=== PATIENT | female | born 1990 | race African-American/Black ===

== ENCOUNTER 2020-11-04 04:08 | Emergency (ER) | payer MEDICAID, OTHER ==
[~2020-11-04] VITALS: Ht 149.9 cm; Wt 59.0 kg
[~2020-11-04 04:08] MED LIST: FERR-63 PO; IBUP-779 PO; MULT-1101 PO; PREN1TAB49 PO
[2020-11-04 04:13] VITALS: BP 119/89
[2020-11-04] MEDS ORDERED: LIDOCAINE HCL/PF 1% 10 MG/ML 5ML VIAL INFIL ONE (05:00)
[2020-11-04] MEDS ORDERED: BACITRACIN ZINC OINT UDPKT TOP ONE (05:00)
[2020-11-04] MEDS ORDERED: ACETAMINOPHEN 325MG TABLET PO ONE (05:00)
[2020-11-04] MEDS ORDERED: TRAMADOL 50MG TABLET PO ONE (05:00)
[2020-11-04] MEDS ORDERED: TETANUS, DIPHTHERIA, PERTUSSIS VAC/PF 0.5ML (>10YR OLD) IM ONE (05:00)
== END 2020-11-04 06:30 | disposition left against medical advice (07) ==
LOC: ER 04:08
DX: S61.412A Laceration without foreign body of left hand, initial encounter (principal); S10.83XA Contusion of other specified part of neck, initial encounter; X99.1XXA Assault by knife, initial encounter; Y93.89 Activity, other specified; Y92.480 Sidewalk as the place of occurrence of the external cause
CPT/HCPCS: 90715; 99283; J3490

== ENCOUNTER 2022-03-11 10:54 | Inpatient (IN) | payer OTHER ==
[~2022-03-11] VITALS: Ht 152.4 cm; Wt 68.0 kg
[2022-03-11] MEDS ORDERED: CARBOPROST TROMETHAMINE 250 MCG/ML AMPUL IM PRN (11:45)
[2022-03-11] MEDS ORDERED: PENICILLIN G POTASSIUM 5 MMU in DEXT 5% WATER 100 ML IV SCH (11:45)
[2022-03-11] MEDS ORDERED: NALOXONE HCL 0.4 MG/ML 1ML VIAL IM PRN (11:45)
[2022-03-11] MEDS ORDERED: LIDOCAINE HCL 1% 20ML VIAL (Pyxis) INJ INFIL SCH (11:45)
[2022-03-11] MEDS ORDERED: METHYLERGONOVINE MALEATE 0.2 MG/ML IM PRN (11:45)
[2022-03-11] MEDS: LACTATED RINGERS 1,000 ML IV SCH ×2 (12:03→16:26)
[2022-03-11] MEDS: BUTORPHANOL TARTRATE 2 MG/ML VIAL IV PRN ×2 (12:14→15:37)
[2022-03-11 12:30] LABS: BASOPHILS % 0.4 % (0.0-2.0); EOSINOPHILS % 1.1 % (0.0-5.0); HEMATOCRIT. 30.2 % (36.0-48.0); HEMOGLOBIN. 10.1 g/dL (12.0-16.0); LYMPHOCYTES % 17.3 % (20.0-50.0); MEAN CORPUSCULAR HEMOGLOBIN 28.1 pg (28.0-32.0); MEAN CORPUSCULAR VOLUME 84.1 fL (81.0-99.0); MONOCYTES % 8.1 % (2.0-8.0); NEUTROPHILS % 73.1 % (40.0-76.0); PLATELET 218 x1000/uL (130-400); RED BLOOD CELL COUNT 3.59 mill/uL (4.2-5.4); RED CELL DISTRIBUTION WIDTH 16.7 % (11.6-14.6)
[2022-03-11 12:34] LABS: PARTIAL THROMBOPLASTIN TIME 26.9 sec (23.4-31.0); PROTHROMBIN TIME 10.6 sec (9.6-11.0)
[2022-03-11 12:40] LABS: CLARITY URINE TURBID (CLEAR); COLOR URINE RED (YELLOW); KETONES URINE NEGATIVE (NEGATIVE); LEUKOCYTE ESTERASE URINE 3+ (NEGATIVE); NITRITE URINE NEGATIVE (NEGATIVE); OCCULT BLOOD URINE 3+ (NEGATIVE); PH URINE 6.5 (4.5-8.0); PROTEIN URINE 2+ (NEGATIVE); SPECIFIC GRAVITY URINE 1.018 (1.005-1.030); UROBILINOGEN URINE 0.2 E.U./dL (0.2-1.0)
[2022-03-11] MEDS ORDERED: LABETALOL HCL 5MG/ML VIAL 20ML IV PRN ×3 (13:00)
[2022-03-11] MEDS: MAGNESIUM 20 G PREMIX (L & D) 500 ML IV SCH ×2 (13:07→21:01)
[2022-03-11 13:24] LABS: D-DIMER 1.57 mg/L FEU (<0.50)
[2022-03-11 13:36] LABS: CHLORIDE 104 mEq/L (98-107)
[2022-03-11 13:44] LABS: *AMPHETAMINES SCREEN URINE NEGATIVE (NEGATIVE); *BARBITURATES SCREEN URINE NEGATIVE (NEGATIVE); *BENZODIAZEPINES SCREEN URINE NEGATIVE (NEGATIVE); CANNABINOID URINE SCREEN NEGATIVE (NEGATIVE); METHADONE URINE SCREEN NEGATIVE (NEGATIVE); OPIATES URINE SCREEN NEGATIVE (NEGATIVE); PHENCYCLIDINE URINE SCREEN NEGATIVE (NEGATIVE)
[2022-03-11 13:54] LABS: *COCAINE SCREEN URINE PRESUMTIVE POSITIVE (NEGATIVE)
[2022-03-11 14:07] LABS: HEPATITIS B SURFACE ANTIGEN NEGATIVE
[2022-03-11] MEDS: PENICILLIN G POTASSIUM 2.5 MMU in DEXTROSE 5% WATER 50 ML IV SCH ×2 (16:24→20:27)
[2022-03-11] MEDS: OXYTOCIN 30 UNITS/500ML NS PMX 500 ML IV SCH ×2 (20:49→23:33)
[2022-03-11] MEDS ORDERED: ROPIVACAINE HCL/PF EPIDURAL 200 ML EPI SCH (22:00)
[2022-03-11] MEDS ORDERED: PENICILLIN G BENZATHINE 2,400,000 UNITS/4ML SYR IM NR (23:00)
[2022-03-11] MEDS ORDERED: GLYCERIN/WITCH HAZEL LEAF MEDICATED PAD TOP PRN (23:00)
[2022-03-11] MEDS ORDERED: ACETAMINOPHEN WITH CODEINE 300/30MG TABLET PO PRN (23:00)
[2022-03-11] MEDS ORDERED: IBUPROFEN 800MG TABLET PO PRN (23:00)
[2022-03-11] MEDS ORDERED: BISACODYL 10MG SUPP PR PRN (23:00)
[2022-03-11] MEDS ORDERED: BENZOCAINE/LANOLIN/ALOE VERA SPRAY TOP PRN (23:00)
[2022-03-11] MEDS ORDERED: OXYTOCIN 30 UNITS/500ML NS PMX 500 ML IV SCH (23:00)
[2022-03-11] MEDS ORDERED: IBUPROFEN 400MG TABLET PO PRN (23:00)
[2022-03-11] MEDS ORDERED: LANOLIN OINT 7GM TUBE TOP PRN (23:00)
[2022-03-11] MEDS ORDERED: RHO(D) IMMUNE GLOBULIN 300 MCG/SYR IM PRN (23:00)
[2022-03-11] MEDS ORDERED: HEMORRHOIDAL SUPP PR PRN (23:00)
[2022-03-11] MEDS ORDERED: DIPHENHYDRAMINE 25MG CAPSULE PO PRN (23:00)
[2022-03-11 23:30] VITALS: BP 143/79
[2022-03-11] MEDS ORDERED: MAGNESIUM 2 G PREMIX 50 ML IV NR (23:30)
[2022-03-12 04:00] VITALS: BP 135/68
[2022-03-12 06:41] LABS: BASOPHILS % 0.2 % (0.0-2.0); EOSINOPHILS % 0.4 % (0.0-5.0); HEMATOCRIT. 28.1 % (36.0-48.0); HEMOGLOBIN. 9.2 g/dL (12.0-16.0); LYMPHOCYTES % 9.8 % (20.0-50.0); MEAN CORPUSCULAR VOLUME 85.1 fL (81.0-99.0); MEAN PLATELET VOLUME 8.2 fl (7.4-10.4); MONOCYTES % 5.8 % (2.0-8.0); NEUTROPHILS % 83.8 % (40.0-76.0); PLATELET 186 x1000/uL (130-400); RED CELL DISTRIBUTION WIDTH 16.8 % (11.6-14.6)
[2022-03-12] MEDS ORDERED: MAGNESIUM 20 G PREMIX (L & D) 500 ML IV SCH (07:15)
[2022-03-12 08:00] VITALS: BP 121/65
[2022-03-12] MEDS: SIMETHICONE 80MG TABLET CHEW PO SCH ×4 (08:56→21:43)
[2022-03-12] MEDS: PRENATAL VIT/FE FUMARATE/FA TABLET PO SCH (08:56)
[2022-03-12] MEDS: MAGNESIUM/ALUMINUM HYDROXIDE/SIMETHICONE 30ML UDC PO SCH ×4 (08:56→21:43)
[2022-03-12] MEDS: FERROUS SULFATE 325MG TABLET PO SCH ×3 (08:56→17:30)
[2022-03-12] MEDS ORDERED: IBUPROFEN 600MG TABLET PO SCH ×2 (09:00)
[2022-03-12 16:00] VITALS: BP 114/70
[2022-03-12 19:30] VITALS: BP 120/70
[2022-03-12] MEDS ORDERED: DOCUSATE SODIUM 100MG CAPSULE PO SCH (21:00)
[2022-03-13 04:00] VITALS: BP 112/67
[2022-03-13] MEDS: FERROUS SULFATE 325MG TABLET PO SCH (07:30)
[2022-03-13] MEDS: SIMETHICONE 80MG TABLET CHEW PO SCH (07:57)
[2022-03-13] MEDS: PRENATAL VIT/FE FUMARATE/FA TABLET PO SCH (07:57)
[2022-03-13 08:00] VITALS: BP 112/67
[2022-03-13] MEDS ORDERED: MEDROXYPROGESTERONE ACETATE 150MG/ML VIAL IM NR (08:00)
[2022-03-13] MEDS ORDERED: METRONIDAZOLE 500MG TABLET PO NR (08:00)
== END 2022-03-13 11:25 | disposition home or self-care (01) | DRG 560 ==
LOC: OBSVTOIN 10:54 → 8 EST LDRP 10:54 → 8EST 23:44
PROVIDERS: ADMIT Obstetrics & Gynecology; ATTEND Obstetrics & Gynecology
PROC: 10E0XZZ Delivery of Products of Conception, External Approach (ICD-10-PCS; principal; 2022-03-11)
DX: O69.81X0 Labor and delivery complicated by cord around neck, without compression, not applicable or unspecified (principal); Z37.0 Single live birth; O98.12 Syphilis complicating childbirth; O99.324 Drug use complicating childbirth; O98.32 Other infections with a predominantly sexual mode of transmission complicating childbirth; A59.9 Trichomoniasis, unspecified; F14.10 Cocaine abuse, uncomplicated; O99.02 Anemia complicating childbirth; Z3A.39 39 weeks gestation of pregnancy; Z20.822 Contact with and (suspected) exposure to COVID-19
CPT/HCPCS: 36415; 80053; 80305; 80353; 81003; 83735; 84550; 85025; 85379; 85384; 86592; 86593; 86703; 86762; 86780; 86850; 86900; 87340; 87426; J0561; J0595; J1050; J2310; J2540; J3475; J3490; J7060; J7120; A4315; J2590